=== PATIENT | female | born 1970 | race Caucasian/White ===

== ENCOUNTER 2016-05-27 20:18 | Observation (INO) | payer SELFPAY ==
[2016-05-27 20:18] VITALS: BMI 14.1
[2016-05-27 20:25] VITALS: O2SAT 100
--- NOTE | 2016-05-27 20:43 | C.PDOC ---
History Of Present Illness 46 y/o female presents to ED via EMS for etoh intoxication. Patient states she was released from alcohol detox yesterday. Denies any complaints. Time Seen by Provider: 05/27/16 20:42 Chief Complaint (Nursing): Substance Abuse History Per: Patient History/Exam Limitations: no limitations Onset/Duration Of Symptoms: Days Current Symptoms Are (Timing): Still Present Suicide/Self Injury Attempted (Context): None Modifying Factor(s): Alcohol Associated Symptoms: denies: Suicidal Thoughts, Suicidal Plan Recent travel outside of the [place]: No Past Medical History Reviewed: Historical Data, Nursing Documentation, Vital Signs Vital Signs: Last Vital Signs Temp 97.7 F 05/27/16 20:22 Pulse 77 05/27/16 20:22 Resp 16 05/27/16 20:22 BP 101/66 05/27/16 20:22 Pulse Ox 100 05/28/16 00:39 - [facility] Procedures ALCOHOL DETOXIFICATION (10/04/13) Family History: States: No Known Family Hx - Social History Hx Tobacco Use: No Hx Alcohol Use: No Hx Substance Use: Yes - Immunization History Hx Tetanus Toxoid Vaccination: No Hx Influenza Vaccination: No Hx Pneumococcal Vaccination: No Review Of Systems Constitutional: Negative for: Fever, Chills Cardiovascular: Negative for: Chest Pain, Palpitations Respiratory: Negative for: Cough, Shortness of Breath Gastrointestinal: Negative for: Nausea, Vomiting Psych: Negative for: Withdrawal Physical Exam - Physical Exam Appears: Non-toxic, No Acute Distress Skin: Warm, Dry Chest: Symmetrical Cardiovascular: Rhythm Regular Respiratory: No Rales, No Rhonchi, No Wheezing Gastrointestinal/Abdominal: Soft, No Tenderness Extremity: Normal ROM Neurological/Psych: Oriented x3 ED Course And Treatment O2 Sat by Pulse Oximetry: 100 (RA) Pulse Ox Interpretation: Normal Reevaluation Time: 00:37 Reassessment Condition: Improved ED OBSERVATION Discharge: Yes Date of observation admission: 05/27/16 Time of observation admission: 20:48 - Observation admission statement Patient is being placed in observation because:: acute alcohol intoxication - Goals of Observation Goals of observation are:: sobriety - Progress Note Progress Note: 05/27/16 20:48 vitals stable, no complaints 05/27/16 22:48 arousable 05/28/16 00:37 ambulating without difficulty. wants to go home Disposition Counseled Patient/Family Regarding: Studies Performed, Diagnosis, Need For Followup - Disposition Disposition: HOME/ ROUTINE Disposition Time: 20:43 Condition: FAIR - Clinical Impression Clinical Impression: Alcohol intoxication - Scribe Statement The provider has reviewed the documentation as recorded by the Bhavya Walters Provider Scribe Attestation: All medical record entries made by the Bhavya were at my direction and personally dictated by me. I have reviewed the chart and agree that the record accurately reflects my personal performance of the history, physical exam, medical decision making, and the department course for this patient. I have also personally directed, reviewed, and agree with the discharge instructions and disposition. Decision To Admit - . Bed Request Type: ED Observation Patient Diagnosis: Alcohol intoxication
[2016-05-28 00:43] VITALS: BP 110/75; PULSE 86; RESP 18; TEMP 97.4
== END 2016-05-28 00:40 | disposition home or self-care (01) ==
LOC: C.ER 20:18 → C.9OBSV 20:47
PROVIDERS: ADMIT Emergency Medicine; ATTEND Emergency Medicine
DX: F10.120 Alcohol abuse with intoxication, uncomplicated (principal); Y90.9 Presence of alcohol in blood, level not specified
CPT/HCPCS: 82948; G0378

== ENCOUNTER 2016-06-06 16:05 | Emergency (ER) | payer SELFPAY ==
[2016-06-06 16:05] VITALS: BMI 14.1
--- NOTE | 2016-06-06 16:46 | C.PDOC ---
History Of Present Illness 46 y/o F c history of alcohol abuse p/w back pain x 3 hours ago. Patient describes pain as L lower back, nonradiating, sharp, intermittent, worse with movement, better with rest. She denies fever, recent procedure, urinary or bowel changes, numbness, or weakness. She has had this back pain before and blames it on her alcohol use. She states she takes no medications because she is concerned about their side effects in conjunction with her alcohol use. She denies dysuria, hematuria, leg pain. Time Seen by Provider: 06/06/16 16:22 Chief Complaint (Nursing): Substance Abuse Past Medical History Vital Signs: Last Vital Signs Temp 98.2 F 06/06/16 17:04 Pulse 89 06/06/16 17:04 Resp 20 06/06/16 17:04 BP 116/77 06/06/16 17:04 Pulse Ox 100 06/06/16 17:39 - Medical History PMH: Fractures (R foot, R hip, L shoulder, R knee) Denies: Anxiety, Bipolar Disorder, Depression, Diabetes, Hepatitis, HIV, HTN , Personality Disorder, Schizophrenia, Seizures, Sexually Transmitted Disease - [facility] Procedures ALCOHOL DETOXIFICATION (10/04/13) Family History: States: Unknown Family Hx - Social History Hx Tobacco Use: No Hx Alcohol Use: Yes Hx Substance Use: No - Immunization History Hx Tetanus Toxoid Vaccination: No Hx Influenza Vaccination: No Hx Pneumococcal Vaccination: No Review Of Systems Except As Marked, All Systems Reviewed And Found Negative. Constitutional: Negative for: Fever Cardiovascular: Negative for: Chest Pain Physical Exam - Physical Exam Additional Physical Exam Comments: Constitutional: No acute distress. Head: Normocephalic. Atraumatic. Eyes: PERRL. ENT: Moist mucous membranes. Neck: Supple. Cardiovascular: Regular rate. Radial pulse 2+ bilaterally. Chest: No tenderness. Respiratory: Clear to auscultation bilaterally. GI: Soft. Nontender. Nondistended. Back: No CVA tenderness. Musculoskeletal: No tenderness or swelling of extremities. Skin: No rash. Neurologic: Alert, no focal deficit. Steady gait ED Course And Treatment O2 Sat by Pulse Oximetry: 100 Medical Decision Making Medical Decision Making: I offered the patient further testing, but she declined and wished to leave. She stated she would return for any visible blood or dysuria. She is with steady gait. Disposition - Disposition Disposition: HOME/ ROUTINE Disposition Time: 16:45 Condition: STABLE Instructions: Back Pain (ED) - Clinical Impression Clinical Impression: Back pain
[2016-06-06 17:05] VITALS: BP 116/77; PULSE 89; RESP 20; TEMP 98.2
[2016-06-06 17:15] VITALS: O2SAT 100
== END 2016-06-06 17:07 | disposition home or self-care (01) ==
LOC: C.ER 16:05
DX: M54.5 Low back pain (principal)